=== PATIENT | female | born 1970 | race Hispanic/Latino ===

== ENCOUNTER 2017-07-04 12:28 | Observation (INO) | payer SELFPAY ==
[2017-07-04 12:59] LABS: #Eosinphils 0.2 thou/uL (0.0-0.7); #Monocytes 0.3 thou/uL (0.11-0.59); #Neutrophils 2.8 thou/uL (1.40-6.50); %Eosinophils 3.6 % (0.0-10.0); %Lymphocytes 23.9 % (21.0-51.0); %Monocytes 7.4 % (0.0-10.0); Hematocrit 44.7 % (36.0-47.0); Mean Platelet Volume 6.9 fL (7.4-10.4); Red Blood Cell (RBC) Count 4.77 mill/uL (4.20-5.40); White Blood Cell (WBC) Count 4.3 thou/uL (4.8-10.8)
[2017-07-04 13:23] LABS: ALT (SGPT) 16 U/L (8-55); AST (SGOT) 17 U/L (5-34); Alkaline Phosphatase 57 U/L (40-150); Anion Gap 13 mmol/L (10-20); BUN (Urea Nitrogen) 11 mg/dL (7.0-18.7); Bilirubin, Total 0.7 mg/dL (0.2-1.2); CK (CPK) 87 U/L (29-168); Calc. Creatinine Clearance 0 mL/min (70-130); Calcium 9.6 mg/dL (7.8-10.44); Carbon Dioxide 25 mmol/L (22-29); Chloride 104 mmol/L (98-107); Estimated GFR-MDRD 85; Globulin 3.9 g/dL (2.4-3.5); Lipase 32 U/L (8-78)
--- NOTE | 2017-07-04 13:25 | RAD ---
PORTABLE CHEST ONE VIEW: 07/04/2017 1:00 p.m. HISTORY: Chest pain. COMPARISON: 09/26/2014 FINDINGS: The cardiomediastinum is normal. The lungs are well expanded without focal areas of consolidation, pneumothorax, or pleural effusions. IMPRESSION: No radiographic evidence of acute cardiopulmonary process. POS: [facility]
[2017-07-04 13:26] LABS: Troponin I 0.015 ng/mL (< 0.028)
--- NOTE | 2017-07-04 14:26 | CT ---
CT PULMONARY ANGIOGRAM WITH IV CONTRAST AND 3D POSTPROCESSING: History Chest pain, difficulty breathing. FINDINGS: There is good contrast opacification of the pulmonary arterial vasculature without filling defects t o suggest pulmonary embolism. The thoracic aorta is well opacified without aneurysm or dissection. No pleural or pericardial effusions are seen. No pneumothoraces are identified. There is mild inf iltrate versus atelectatic change in the posteromedial aspect of the right lower lobe. There are de generative changes in the spine. IMPRESSION: No CT evidence of pulmonary embolism. POS: [facility]
[2017-07-04] MEDS ORDERED: Ondansetron HCl/PF 4 MG/2 ML Vial IVP PRN (16:05)
[2017-07-04] MEDS ORDERED: Milk Of Magnesia 30 ML UDCUP PO PRN (16:05)
[2017-07-04] MEDS ORDERED: Acetaminophen 325 MG TAB PO PRN (16:05)
[2017-07-04] MEDS ORDERED: Ondansetron ODT 4 MG TAB PO PRN (16:05)
[2017-07-04] MEDS ORDERED: Calcium Carbonate 500 MG ChewTAB PO PRN (16:05)
[2017-07-04] MEDS ORDERED: Loperamide HCl 2 MG CAP PO PRN (16:05)
[2017-07-04] MEDS ORDERED: Mag-Al 1200 mg/1200 mg/30 ML UDCUP PO PRN (16:05)
[2017-07-04] MEDS ORDERED: ISOVUE-370 76%-LOCM 1 ML ONE (16:11)
[2017-07-04 16:27] LABS: Hemoglobin A1c 5.4 % (4.0-6.0); Magnesium 2.2 mg/dL (1.6-2.6); Phosphorus 3.6 mg/dL (2.3-4.7)
[2017-07-04 16:33] LABS: Troponin I 0.011 ng/mL (< 0.028)
[2017-07-04 16:40] VITALS: BMI 25.4
[2017-07-04] MEDS ORDERED: Ketorolac Tromethamine 30 MG/ML VIAL IVP SCH (16:45)
[2017-07-04 19:16] LABS: Troponin I 0.011 ng/mL (< 0.028)
--- NOTE | 2017-07-04 21:37 | HP-2 ---
DATE OF ADMISSION: 07/04/2017 Patient seen at 1541. CODE STATUS: FULL. PRIMARY CARE PHYSICIAN: Jasbir mandujano. ATTENDING PHYSICIAN: Dr. Manan Angeles RESIDENT: Mamta Darnell M.D. HISTORIAN: Patient and [id number] of patient. CHIEF COMPLAINT: Chest pain. HISTORY OF PRESENT ILLNESS: Patient is a pleasant 46-year-old female with no significant past medical history who presents to the emergency department with a 1-week history of left-sided intermittent chest pain. She states that the pain occurs sometimes when she is sitting down, sometimes with activity with no real consistent pattern and that the pain feels like a pressure type of pain. She states that the pressure causes her to become very short of breath. She also states that she has fallen twice because she felt like the pain had taken the wind out of her. Patient has come to the emergency department 2 other times for this type of pain and sent home according to the [id number]. Patient states that she does have a new job that she started about a month ago, in which she has been lifting things, no heavier than about 30 pounds. She specifically denies any trauma to the chest. She endorses substernal chest pain. She denies shortness of breath with exertion, radiation to the arms, jaw, or back. In the emergency department, patient was evaluated with a CTA of the chest, which was negative for pulmonary embolism. PAST MEDICAL HISTORY: None. PAST SURGICAL HISTORY: 1. Cholecystectomy. 2. Two C-sections. ALLERGIES: None. DAILY MEDICATIONS: None. FAMILY HISTORY: Patient endorses no family history of early coronary artery disease, cancer, diabetes, hypertension, stroke. SOCIAL HISTORY: Patient denies any smokeless tobacco use or drug use. She states that she drinks approximately one beer per month. She was in [place], was , and has 3 children. She started a new job about a month ago, which requires a lot of lifting, but the objects are less than 30 pounds. REVIEW OF SYSTEMS: General: Patient denies fever, chills, weight changes, night sweats, fatigue. Eyes: Patient denies vision changes or eye pain. ENT: Patient denies nasal congestion, rhinorrhea, sore throat. Respirations: Patient denies cough, congestion, exercise intolerance. Positive for shortness of breath with episodes of pain. Cardiovascular: Patient endorses chest pain. Denies palpitations, edema, PND, orthopnea. Gastrointestinal: Patient endorses nausea. Denies vomiting, diarrhea, constipation, abdominal pain, GI bleeding. Genitourinary: Patient denies incontinence, dysuria, or polyuria. Skin: Denies rash, lesions, itching. Musculoskeletal: Patient endorses muscular pain of the left chest wall and tenderness. Denies swelling, stiffness. Neuro: Denies weakness, numbness. Endorses dizziness at times. Psychiatric: Patient endorses history of panic attacks and anxiety. Denies depression. PHYSICAL EXAMINATION: VITAL SIGNS: Blood pressure 137/88, pulse 60, respirations 18, T-max 98.6, pulse ox 99% on room air, current weight 66 kilograms. GENERAL: Patient is alert and oriented x3. She does not appear in distress. She is well-developed, well-nourished, appropriately interactive during the interview of the exam. HEENT: Pupils are equally round and reactive to light and accommodation. Extraocular muscles are intact. Conjunctivae within normal limits. ENT: TMs are pearly villela without bulging or erythema. Nasal mucosa and oropharynx are moist without erythema. NECK: Supple. No lymphadenopathy, no thyromegaly. CARDIOVASCULAR: Regular rate and rhythm. No murmurs, gallops, clicks, or rubs. Radial pulses and pedal pulses +2. RESPIRATIONS: Normal effort, no retractions. Lungs are clear to auscultation bilaterally. No wheezes, rales, or rhonchi. SKIN: Warm and dry, free of cyanosis, or lesions. ABDOMEN: Soft, nontender to palpation. Bowel sounds present in all 4 quadrants. No masses or distention. EXTREMITIES: No clubbing, cyanosis, or edema. MUSCULOSKELETAL: Structure and tone within normal limits. Muscle strength is 5 /5 in the upper and lower extremities. Full range of motion. NEUROLOGIC: No focal deficits. PSYCHIATRIC: Appropriate. LABORATORY DATA: White count 4.3, hemoglobin 14.5, hematocrit 44.7, platelets 257, 0% bands, 69.2% neutrophils, MCV is 94. Sodium 138, potassium 3.7, chloride 104, bicarbonate 25, BUN 11, creatinine 0.74, glucose 97, calcium 9.6. AST 17, ALT 16, alkaline phosphatase 57, total bilirubin 0.7, albumin 4.1, lipase 32. Chest x-ray shows normal sinus rhythm at rate of 73. There is T- wave inversion in V1 and V2. CTA was negative for PE. Chest x-ray shows no acute findings. ASSESSMENT AND PLAN: This is a 46-year-old female with no significant past medical history who presents with 1. Atypical chest pain. We will place the patient under observation on telemetry. Patient's HEART score is 0, but she says she has come to the ER for the same complaint multiple times. We will conduct a stress test in the morning. Her CT is negative for pulmonary embolism. On exam, this pain seems likely related to musculoskeletal pain related to possibly her new job, lifting items. We will treat the pain with Toradol and possibly with NSAIDs when going home. We will also risk stratify the patient for heart disease with laboratory work of fasting lipid panel, A1c, TSH, magnesium, and phosphatase. DISPOSITION AND LENGTH OF STAY: One day. Symptomatic medications will be provided. History and physical exam as well as management was discussed with Dr. Angeles. PRINCESS
--- NOTE | 2017-07-04 23:00 | PDOC.EVN ---
Event Note - Event Note Event Note: Attending H&P I personally evaluated the patient and discussed the management with Dr. Darnell. I have reviewed the written H&P and it is repeated by me. I agree with the History, Examination, Assessment and Plan documented above with any addition or exceptions noted below. Patient is resting comfortably and without chest pain. Troponin normal x 2. Stress test in AM for recurrent CP.
[2017-07-05 04:58] VITALS: TEMP 98.4
[2017-07-05 05:04] LABS: #Eosinphils 0.3 thou/uL (0.0-0.7); #Lymphocytes 1.3 thou/uL (1.20-3.40); #Monocytes 0.5 thou/uL (0.11-0.59); #Neutrophils 2.5 thou/uL (1.40-6.50); %Basophils 0.5 % (0.0-1.0); %Eosinophils 6.4 % (0.0-10.0); %Lymphocytes 28.6 % (21.0-51.0); %Monocytes 10.4 % (0.0-10.0); Mean Platelet Volume 6.8 fL (7.4-10.4); Red Blood Cell (RBC) Count 4.27 mill/uL (4.20-5.40); White Blood Cell (WBC) Count 4.6 thou/uL (4.8-10.8)
[2017-07-05 05:35] LABS: Anion Gap 7 mmol/L (10-20); BUN (Urea Nitrogen) 13 mg/dL (7.0-18.7); Calc. Creatinine Clearance 102 mL/min (70-130); Calcium 9.2 mg/dL (7.8-10.44); Carbon Dioxide 29 mmol/L (22-29); Chloride 104 mmol/L (98-107); Cholesterol 146 mg/dl (< 200 Desired); Estimated GFR-MDRD 88; LDL Cholesterol, Calculated 83 mg/dL
--- NOTE | 2017-07-05 06:40 | PDOC.FM ---
- Subjective Subjective: Pt doing well this morning, no acute events overnight. No questions or concerns. Endorses some continued left sided chest pain. Ready for stress this morning. - Objective MAR Reviewed: Yes Vital Signs & Weight: Vital Signs (12 hours) Temp Pulse Resp BP Pulse Ox 07/05/17 04:13 98.4 F 63 22 H 113/78 95 07/04/17 19:16 98.7 F 66 16 127/69 95 Weight Weight 65.091 kg I&O: 07/03/17 07/04/17 07/05/17 06:59 06:59 06:59 Intake Total 300 Balance 300 Result Diagrams: 07/05/17 04:16 07/05/17 04:16 EKG Reviewed by me: Yes Phys Exam - Physical Examination Constitutional: NAD HEENT: moist MMs, sclera anicteric Neck: supple, full ROM Respiratory: no wheezing, no rales, no rhonchi, clear to auscultation bilateral Cardiovascular: RRR, no significant murmur, no rub Gastrointestinal: soft, non-tender, no distention Musculoskeletal: no edema, pulses present Neurological: non-focal, moves all 4 limbs Psychiatric: normal affect, A&O x 3 Dx/Plan (1) Atypical angina Code(s): I20.8 - OTHER FORMS OF ANGINA PECTORIS Status: Acute Plan: Pain likely 2/2 to musculoskeletal source -patient has been seen in ER 3 times for same reason -stress test this morning -treat with NSAIDs
[2017-07-05 07:59] VITALS: BP 113/68
--- NOTE | 2017-07-05 14:11 | ADD-PRG ---
DATE OF SERVICE: 07/05/2017 ADDENDUM This is an addendum to the note of Dr. Robe Wu. Ms. De Oliveira is a 46-year-old female who does not speak [place]. She presented to our emergen cy room with very atypical chest pain. This does, however, her third visit to the ER for chest pain and she was admitted for workup and evaluation. PHYSICAL EXAMINATION: GENERAL: She is awake and alert, in no distress. VITAL SIGNS: Her vital signs are stable. Her troponins were negative. Her lipids, triglycerides 105, cholesterol 146, LDL 83, HDL 42. Her C hem-7 was normal. Her GFR is 88. Her EKG is normal. We are currently awaiting results of her stre ss Myoview. If negative, she will be discharged.
[2017-07-05] MEDS ORDERED: ADENOSINE 60 MG/20 ML VIAL ONE (14:16)
--- NOTE | 2017-07-05 14:28 | NM ---
NUCLEAR MEDICINE CARDIAC PERFUSION EXAMINATION WITH EJECTION FRACTION: HISTORY: A 46-year-old female with chest pain. TECHNIQUE: A single-day nuclear medicine cardiac perfusion examination was performed. Rest images were obtaine d using 9.8 mCi of Technetium 99m sestamibi. Stress images were obtained using 27 mCi of Technetium 99m sestamibi and adenosine. FINDINGS: Tomographic images showed no fixed or reversible perfusion defects. Gated images show normal wall m otion with an ejection fraction of 65%. EDV is 59 mL. LHR is 0.3. TID is 1.04. IMPRESSION: No evidence of ischemia. POS: [facility]
--- NOTE | 2017-07-05 21:29 | DIS-2 ---
DATE OF ADMISSION: 07/04/2017 DATE OF DISCHARGE: 07/05/2017. RESIDENT: Robe Wu MD ADMITTING ATTENDING: Manan Angeles M.D. DISCHARGE ATTENDING: Mik Cordoba M.D. CONSULTATIONS: None. PROCEDURES PERFORMED: 1. Chest x-ray. Impression: No radiographic evidence of acute cardiopulmonary process. 2. CTA of the chest and thorax. Impression: No CT evidence of pulmonary embolism. 3. Nuclear medicine stress test. Impression: No evidence of ischemia. PRIMARY DIAGNOSIS: Atypical angina. DISCHARGE MEDICATIONS: 1. Ibuprofen 600 mg tablet p.o. q.6 h. 2. Aspirin 81 mg p.o. daily. 3. Acetaminophen 650 mg p.o. q.4 h. p.r.n. DISCONTINUED MEDICATIONS: Maalox 30 mL p.o. q.6 h. p.r.n., Tums 1000 mg p.o. q.4 h. p.r.n., lactulo se 20 grams p.o. daily p.r.n., Imodium 20 mg p.o. p.r.n., Zofran 4 mg p.o. q.6 h. p.r.n., and Torado l 15 mg IVP now. HISTORY OF PRESENT ILLNESS/HOSPITAL COURSE: Devorah De Oliveira is a 46-year-old female with no past medical history, on no medications, who presented to the emergency department with 1-week histo ry of left-sided intermittent chest pain. She stated that the pain occurs occasion whenever she is sitting down and sometimes with activity. She describes the pain as pressure type pain. She also s tates that she had fallen twice because she felt like the pain had taken the wind out of her. The obi burns has come to the emergency department two other times in the past for similar pain and she nation s have a new job that she started about a month ago where she has been lifting heavy things, but no heavier than 30 pounds. She states that the pain is substernal. She denies any shortness of breath with exertion or radiation of the pain to the arms, jaw or back. She denies any trauma to the ches t. In the emergency department, she was evaluated CTA of the chest which was negative for pulmonary embolism. The patient was placed an ARBs on telemetry. Her heart score was 0. Due to the ER visi ts for same complaint multiple times, we conducted a nuclear medicine stress test which was negative for ischemia. The patient's pain was controlled with Toradol, and Tylenol. The patient had lab wo rkup done and was found to have normal TSH of 1.6613. Normal hemoglobin A1c of 5.4, normal mag and phos, triglyceride of 105, cholesterol of 146, LDL of 83, HDL of 42. Chest x-ray on admission was n ormal. The patient's pain was well controlled throughout her admission and on the day of discharge, nuclear medicine stress test came back and was normal, and the patient was notified and agreed with plan to be discharged on NSAIDs and Tylenol. DISPOSITION: Stable. DISCHARGE INSTRUCTIONS: 1. Location: Home. 2. Diet: Heart healthy. 3. Activity: As tolerated. 4. Followup: Follow up with primary care doctor.
== END 2017-07-05 16:27 | disposition home or self-care (01) ==
LOC: ERS 12:28 → 2SW 15:10
PROVIDERS: ADMIT Family Medicine; ATTEND Family Medicine
DX: R07.89 Other chest pain (principal); Z90.710 Acquired absence of both cervix and uterus; Z98.891 History of uterine scar from previous surgery
CPT/HCPCS: 36415; 71010; 71275; 78452; 80048; 80053; 80061; 82553; 83036; 83690; 83735; 84100; 84443; 84484; 85025; 93005; 93017; 94760; 96374; A4216; A9500; G0378; J0153; J1885

== ENCOUNTER 2019-03-03 22:04 | Emergency (ER) | payer BC, SELFPAY ==
[2019-03-03] MEDS ORDERED: diphenhydrAMINE 25 MG CAP ONE (22:42)
== END 2019-03-03 22:57 | disposition home or self-care (01) ==
LOC: ERS 22:04
DX: T63.461A Toxic effect of venom of wasps, accidental (unintentional), initial encounter (principal)
CPT/HCPCS: 99282; Q0163

== ENCOUNTER 2020-07-05 12:57 | Emergency (ER) | payer BC, SELFPAY ==
[2020-07-05] MEDS ORDERED: Fluorescein Opthalmic Strip ONE (13:18)
[2020-07-05] MEDS ORDERED: Proparacaine 0.5% Opth 15 ML BOT ONE (13:18)
== END 2020-07-05 14:35 | disposition home or self-care (01) ==
LOC: ERS 12:57
DX: H11.31 Conjunctival hemorrhage, right eye (principal)
CPT/HCPCS: 99283